=== PATIENT | male | born 1960 | race African-American/Black ===

== ENCOUNTER 2018-03-17 19:46 | Inpatient (IN) | payer OTHER ==
[2018-03-17] MEDS ORDERED: BISACODYL 10 MG SUPP PR (22:00)
[2018-03-17] MEDS ORDERED: MAGNESIUM HYDROXIDE 30ML CUP PO (22:00)
[2018-03-17] MEDS: ATORVASTATIN 40 MG TAB PO (22:33)
[2018-03-17 23:24] LABS: ADD UMIC NO; UR ASCORBIC ACID NEGATIVE (NEGATIVE); UR BILIRUBIN (Dip) NEGATIVE (NEGATIVE); UR BLOOD (Dip) NEGATIVE (NEGATIVE); UR CLARITY CLEAR (CLEAR); UR COLOR YELLOW (YELLOW); UR GLUCOSE (Dip) NEGATIVE (NEGATIVE); UR KETONES (Dip) NEGATIVE (NEGATIVE); UR LEUKOCYTE ESTERASE (Dip) NEGATIVE Leu/ul (NEGATIVE); UR NITRITE (Dip) NEGATIVE (NEGATIVE); UR SPECIFIC GRAVITY (Dip) 1.027 (1.003-1.030); UR TOTAL PROTEIN (Dip) NEGATIVE (NEGATIVE); UR UROBILINOGEN (Dip) 1+ mg/dL (NEGATIVE)
[2018-03-18 06:34] LABS: ADD MAN DIFF? NO
[2018-03-18 06:45] LABS: WHITE BLOOD COUNT 8.3 10^3/ul (4.8-10.8)
[2018-03-18 06:45] LABS: BASOPHILS % 0.4 % (0.0-2.0); EOSINOPHILS # 0.2 10^3/ul (0.0-0.5); EOSINOPHILS % 2.2 % (0.0-7.0); HEMATOCRIT 33.7 % (42.0-52.0); HEMOGLOBIN 10.7 g/dl (14.0-18.0); LYMPHOCYTES # 1.1 10^3/ul (0.8-2.9); MEAN CORPUSCULAR HEMOGLOBIN 27.8 pg (29.0-33.0); MEAN CORPUSCULAR HGB CONC 31.8 g/dl (32.0-37.0); MEAN CORPUSCULAR VOLUME 87.5 fl (82.0-101.0); MEAN PLATELET VOLUME 8.3 fl (7.4-10.4); MONOCYTES % 11.6 % (0.0-11.0); NEUTROPHIL # 5.9 10^3/ul (1.6-7.5); NEUTROPHILS % 70.6 % (39.0-77.0); PLATELET COUNT 613 10^3/UL (140-415); RED BLOOD COUNT 3.85 10^6/ul (4.70-6.10); RED CELL DISTRIBUTION WIDTH 12.1 % (11.5-14.5)
[2018-03-18 06:51] LABS: ALANINE AMINOTRANSFERASE 149 IU/L (13-69); ALBUMIN 3.8 g/dl (3.3-4.9); ALBUMIN/GLOBULIN RATIO 1.05; ALKALINE PHOSPHATASE 110 IU/L (42-121); ANION GAP 11 (8-16); ASPARTATE AMINO TRANSFERASE 117 IU/L (15-46); BILIRUBIN,INDIRECT 0.2 mg/dl (0-1.1); BILIRUBIN,TOTAL 0.2 mg/dl (0.2-1.3); BLOOD UREA NITROGEN 16 mg/dl (7-20); CALCIUM 9.6 mg/dl (8.4-10.2); CARBON DIOXIDE 26 mmol/L (21-31); CHLORIDE 108 mmol/L (97-110); CREATININE 1.04 mg/dl (0.61-1.24); GLUCOSE 111 mg/dl (70-220); POTASSIUM 4.8 mmol/L (3.5-5.1); SODIUM 140 mmol/L (135-144); TOTAL PROTEIN 7.4 g/dl (6.1-8.1)
[2018-03-18] MEDS: ASPIRIN (EC) 81 MG TAB PO (10:16)
[2018-03-18] MEDS: CLOPIDOGREL 75 MG TAB PO (10:16)
[2018-03-18] MEDS: DOCUSATE SODIUM 100 MG CAP PO ×2 (10:29→21:56)
[2018-03-18 12:44] LABS: CHOLESTEROL 162 mg/dl (100-200)
[2018-03-18 12:44] LABS: CHOL/HDL RATIO 5.7 RATIO; HDL CHOLESTEROL 28 mg/dl (28-71); LDL CHOLESTEROL,CALCULATED 107 mg/dl; TRIGLYCERIDES 137 mg/dl (0-149)
[2018-03-18 12:51] LABS: HEMOGLOBIN A1C 6.1 % (0-5.9)
[2018-03-18 13:16] LABS: THYROID STIMULATING HORMONE 0.606 MIU/L (0.465-4.680)
[2018-03-18] MEDS: SENNA TAB PO (21:56)
[2018-03-18] MEDS: ATORVASTATIN 40 MG TAB PO (21:56)
[2018-03-18] MEDS: LIDOCAINE 5% PATCH TD (21:56)
[2018-03-19] MEDS: DOCUSATE SODIUM 100 MG CAP PO ×2 (08:29→20:40)
[2018-03-19] MEDS: ACETAMINOPHEN 325 MG TAB PO ×2 (08:29→16:43)
[2018-03-19] MEDS: CLOPIDOGREL 75 MG TAB PO (08:29)
[2018-03-19] MEDS: ASPIRIN (EC) 81 MG TAB PO (08:29)
[2018-03-19] MEDS: LIDOCAINE 5% PATCH TD (08:30)
[2018-03-19] MEDS: ATORVASTATIN 40 MG TAB PO (20:40)
[2018-03-19] MEDS: HEPARIN 5,000 UNIT/0.5 ML VIAL SC (20:48)
[2018-03-19] MEDS: SENNA TAB PO (21:00)
[2018-03-20] MEDS: DOCUSATE SODIUM 100 MG CAP PO ×2 (08:23→21:13)
[2018-03-20] MEDS: ASPIRIN (EC) 81 MG TAB PO (08:23)
[2018-03-20] MEDS: CLOPIDOGREL 75 MG TAB PO (08:24)
[2018-03-20] MEDS: LIDOCAINE 5% PATCH TD (08:26)
[2018-03-20] MEDS: HEPARIN 5,000 UNIT/0.5 ML VIAL SC (08:26)
[2018-03-20] MEDS: ACETAMINOPHEN 325 MG TAB PO (16:11)
[2018-03-20] MEDS: SENNA TAB PO (21:13)
[2018-03-20] MEDS: ATORVASTATIN 40 MG TAB PO (21:13)
[2018-03-21] MEDS: DOCUSATE SODIUM 100 MG CAP PO ×2 (09:08→21:08)
[2018-03-21] MEDS: LIDOCAINE 5% PATCH TD (09:08)
[2018-03-21] MEDS: CLOPIDOGREL 75 MG TAB PO (09:09)
[2018-03-21] MEDS: ASPIRIN (EC) 81 MG TAB PO (10:00)
[2018-03-21] MEDS: MAGNESIUM HYDROXIDE 30ML CUP PO (18:31)
[2018-03-21] MEDS: LACTULOSE 30ML CUP PO (21:08)
[2018-03-21] MEDS: ATORVASTATIN 40 MG TAB PO (21:08)
[2018-03-21] MEDS: SENNA TAB PO (21:08)
[2018-03-22] MEDS: CLOPIDOGREL 75 MG TAB PO (08:44)
[2018-03-22] MEDS: ASPIRIN (EC) 81 MG TAB PO (08:44)
[2018-03-22] MEDS: LIDOCAINE 5% PATCH TD (08:44)
[2018-03-22] MEDS: DOCUSATE SODIUM 100 MG CAP PO ×2 (08:44→20:33)
[2018-03-22 13:15] LABS: HEPATITIS B SURFACE ANTIGEN NEGATIVE (NEGATIVE)
[2018-03-22 13:32] LABS: HEPATITIS C VIRAL ANTIBODY NEGATIVE (NEGATIVE)
[2018-03-22 13:33] LABS: HIV 1&2 ANTIBODY NEGATIVE (NEGATIVE)
[2018-03-22] MEDS: LACTULOSE 30ML CUP PO (15:07)
[2018-03-22] MEDS: SENNA TAB PO (20:33)
[2018-03-22] MEDS: MAGNESIUM HYDROXIDE 30ML CUP PO (20:33)
[2018-03-22] MEDS: ATORVASTATIN 40 MG TAB PO (20:33)
[2018-03-23] MEDS: DOCUSATE SODIUM 100 MG CAP PO (08:09)
[2018-03-23] MEDS: ASPIRIN (EC) 81 MG TAB PO (08:09)
[2018-03-23] MEDS: LIDOCAINE 5% PATCH TD (08:09)
[2018-03-23] MEDS: CLOPIDOGREL 75 MG TAB PO (08:09)
[2018-03-23] MEDS: LACTULOSE 30ML CUP PO (13:31)
[2018-03-23] MEDS: PSYLLIUM 28% PACKET PO ×2 (14:43→21:00)
[2018-03-23] MEDS: BISACODYL (EC) 5 MG TAB PO (14:43)
[2018-03-23] MEDS: ATORVASTATIN 40 MG TAB PO (20:54)
[2018-03-23] MEDS: SENNA TAB PO (20:55)
[2018-03-23] MEDS: DOCUSATE SODIUM 250 MG CAP PO (20:55)
[2018-03-24] MEDS: PSYLLIUM 28% PACKET PO ×2 (08:45→20:18)
[2018-03-24] MEDS: LIDOCAINE 5% PATCH TD (08:45)
[2018-03-24] MEDS: SENNA TAB PO ×2 (08:46→20:19)
[2018-03-24] MEDS: BISACODYL (EC) 5 MG TAB PO (08:46)
[2018-03-24] MEDS: DOCUSATE SODIUM 250 MG CAP PO ×2 (08:46→20:18)
[2018-03-24] MEDS: ASPIRIN (EC) 81 MG TAB PO (08:46)
[2018-03-24] MEDS: CLOPIDOGREL 75 MG TAB PO (08:46)
[2018-03-24] MEDS: ATORVASTATIN 40 MG TAB PO (20:18)
[2018-03-25] MEDS: CLOPIDOGREL 75 MG TAB PO (09:04)
[2018-03-25] MEDS: BISACODYL (EC) 5 MG TAB PO (09:04)
[2018-03-25] MEDS: ASPIRIN (EC) 81 MG TAB PO (09:04)
[2018-03-25] MEDS: DOCUSATE SODIUM 250 MG CAP PO ×2 (09:04→20:31)
[2018-03-25] MEDS: SENNA TAB PO ×2 (09:05→20:32)
[2018-03-25] MEDS: PSYLLIUM 28% PACKET PO ×2 (09:08→20:32)
[2018-03-25] MEDS: LIDOCAINE 5% PATCH TD (09:08)
[2018-03-25] MEDS: ATORVASTATIN 40 MG TAB PO (20:31)
[2018-03-26] MEDS: PSYLLIUM 28% PACKET PO ×2 (08:10→21:00)
[2018-03-26] MEDS: BISACODYL (EC) 5 MG TAB PO (08:10)
[2018-03-26] MEDS: SENNA TAB PO ×2 (08:10→21:03)
[2018-03-26] MEDS: DOCUSATE SODIUM 250 MG CAP PO ×2 (08:21→21:03)
[2018-03-26] MEDS: CLOPIDOGREL 75 MG TAB PO (08:21)
[2018-03-26] MEDS: ASPIRIN (EC) 81 MG TAB PO (08:21)
[2018-03-26] MEDS: LIDOCAINE 5% PATCH TD (08:23)
[2018-03-26] MEDS: ATORVASTATIN 40 MG TAB PO (21:03)
[2018-03-27 06:50] LABS: WHITE BLOOD COUNT 7.2 10^3/ul (4.8-10.8)
[2018-03-27 06:50] LABS: ADD MAN DIFF? NO; BASOPHILS % 0.6 % (0.0-2.0); EOSINOPHILS # 0.4 10^3/ul (0.0-0.5); EOSINOPHILS % 4.9 % (0.0-7.0); HEMATOCRIT 33.6 % (42.0-52.0); HEMOGLOBIN 10.6 g/dl (14.0-18.0); LYMPHOCYTES # 1.2 10^3/ul (0.8-2.9); LYMPHOCYTES % 16.5 % (15.0-51.0); MEAN CORPUSCULAR HEMOGLOBIN 27.4 pg (29.0-33.0); MEAN CORPUSCULAR HGB CONC 31.5 g/dl (32.0-37.0); MEAN CORPUSCULAR VOLUME 86.8 fl (82.0-101.0); MEAN PLATELET VOLUME 7.9 fl (7.4-10.4); MONOCYTE # 0.8 10^3/ul (0.3-0.9); MONOCYTES % 10.6 % (0.0-11.0); NEUTROPHIL # 4.6 10^3/ul (1.6-7.5); NEUTROPHILS % 64.7 % (39.0-77.0); PLATELET COUNT 631 10^3/UL (140-415); RED BLOOD COUNT 3.87 10^6/ul (4.70-6.10); RED CELL DISTRIBUTION WIDTH 11.9 % (11.5-14.5)
[2018-03-27 07:19] LABS: ALANINE AMINOTRANSFERASE 90 IU/L (13-69); ALBUMIN 3.7 g/dl (3.3-4.9); ALBUMIN/GLOBULIN RATIO 0.94; ALKALINE PHOSPHATASE 104 IU/L (42-121); ANION GAP 16 (8-16); ASPARTATE AMINO TRANSFERASE 45 IU/L (15-46); BILIRUBIN,INDIRECT 0.3 mg/dl (0-1.1); BILIRUBIN,TOTAL 0.3 mg/dl (0.2-1.3); BLOOD UREA NITROGEN 11 mg/dl (7-20); CALCIUM 9.4 mg/dl (8.4-10.2); CARBON DIOXIDE 24 mmol/L (21-31); CHLORIDE 107 mmol/L (97-110); CREATININE 0.92 mg/dl (0.61-1.24); GLUCOSE 112 mg/dl (70-220); POTASSIUM 4.9 mmol/L (3.5-5.1); SODIUM 142 mmol/L (135-144); TOTAL PROTEIN 7.6 g/dl (6.1-8.1)
[2018-03-27] MEDS: DOCUSATE SODIUM 250 MG CAP PO ×2 (08:21→21:24)
[2018-03-27] MEDS: ASPIRIN (EC) 81 MG TAB PO (08:22)
[2018-03-27] MEDS: CLOPIDOGREL 75 MG TAB PO (08:22)
[2018-03-27] MEDS: LIDOCAINE 5% PATCH TD (08:23)
[2018-03-27] MEDS: BISACODYL (EC) 5 MG TAB PO (08:29)
[2018-03-27] MEDS: SENNA TAB PO ×2 (08:29→21:24)
[2018-03-27] MEDS: PSYLLIUM 28% PACKET PO ×2 (08:29→21:24)
[2018-03-27] MEDS: ATORVASTATIN 40 MG TAB PO (21:24)
[2018-03-28] MEDS: SENNA TAB PO ×2 (08:35→21:31)
[2018-03-28] MEDS: CLOPIDOGREL 75 MG TAB PO (08:36)
[2018-03-28] MEDS: PSYLLIUM 28% PACKET PO ×3 (08:36→21:31)
[2018-03-28] MEDS: DOCUSATE SODIUM 250 MG CAP PO ×2 (08:36→21:31)
[2018-03-28] MEDS: ASPIRIN (EC) 81 MG TAB PO (08:36)
[2018-03-28] MEDS: LIDOCAINE 5% PATCH TD (08:36)
[2018-03-28] MEDS: BISACODYL (EC) 5 MG TAB PO (08:36)
[2018-03-28] MEDS: ATORVASTATIN 40 MG TAB PO (21:31)
[2018-03-29] MEDS: PSYLLIUM 28% PACKET PO ×2 (08:42→21:00)
[2018-03-29] MEDS: LIDOCAINE 5% PATCH TD (08:42)
[2018-03-29] MEDS: ACETAMINOPHEN 325 MG TAB PO (08:43)
[2018-03-29] MEDS: BISACODYL (EC) 5 MG TAB PO (08:43)
[2018-03-29] MEDS: SENNA TAB PO ×2 (08:43→21:00)
[2018-03-29] MEDS: DOCUSATE SODIUM 250 MG CAP PO ×2 (08:43→21:00)
[2018-03-29] MEDS: ASPIRIN (EC) 81 MG TAB PO (08:43)
[2018-03-29] MEDS: CLOPIDOGREL 75 MG TAB PO (08:43)
[2018-03-29] MEDS: ATORVASTATIN 40 MG TAB PO (21:02)
[2018-03-30] MEDS: BISACODYL (EC) 5 MG TAB PO (09:00)
[2018-03-30] MEDS: SENNA TAB PO ×2 (09:00→21:00)
[2018-03-30] MEDS: PSYLLIUM 28% PACKET PO ×2 (09:00→21:00)
[2018-03-30] MEDS: DOCUSATE SODIUM 250 MG CAP PO ×2 (09:11→20:52)
[2018-03-30] MEDS: ASPIRIN (EC) 81 MG TAB PO (09:11)
[2018-03-30] MEDS: LIDOCAINE 5% PATCH TD (09:12)
[2018-03-30] MEDS: CLOPIDOGREL 75 MG TAB PO (09:13)
[2018-03-30] MEDS: ATORVASTATIN 40 MG TAB PO (20:52)
[2018-03-31] MEDS: PSYLLIUM 28% PACKET PO ×2 (09:00→20:10)
[2018-03-31] MEDS: DOCUSATE SODIUM 250 MG CAP PO ×2 (09:24→20:10)
[2018-03-31] MEDS: CLOPIDOGREL 75 MG TAB PO (09:24)
[2018-03-31] MEDS: ASPIRIN (EC) 81 MG TAB PO (09:24)
[2018-03-31] MEDS: BISACODYL (EC) 5 MG TAB PO (09:25)
[2018-03-31] MEDS: LIDOCAINE 5% PATCH TD (09:27)
[2018-03-31] MEDS: SENNA TAB PO ×2 (09:27→20:10)
[2018-03-31] MEDS: ATORVASTATIN 40 MG TAB PO (20:10)
[2018-04-01] MEDS: SENNA TAB PO (11:02)
[2018-04-01] MEDS: BISACODYL (EC) 5 MG TAB PO (11:02)
[2018-04-01] MEDS: ASPIRIN (EC) 81 MG TAB PO (11:02)
[2018-04-01] MEDS: CLOPIDOGREL 75 MG TAB PO (11:02)
[2018-04-01] MEDS: DOCUSATE SODIUM 250 MG CAP PO (11:03)
[2018-04-01] MEDS: LIDOCAINE 5% PATCH TD (11:04)
[2018-04-01] MEDS: PSYLLIUM 28% PACKET PO (11:04)
== END 2018-04-01 14:30 | disposition home health service (06) | DRG 57 ==
LOC: VRC 19:46
PROC: F07Z5ZZ Bed Mobility Treatment (ICD-10-PCS; principal; 2018-03-18)
PROC: F07Z8ZZ Transfer Training Treatment (ICD-10-PCS; 2018-03-18)
PROC: F07Z9ZZ Gait Training/Functional Ambulation Treatment (ICD-10-PCS; 2018-03-18)
PROC: F08Z2ZZ Grooming/Personal Hygiene Treatment (ICD-10-PCS; 2018-03-18)
PROC: F08Z1ZZ Dressing Techniques Treatment (ICD-10-PCS; 2018-03-18)
PROC: F08Z1ZZ Dressing Techniques Treatment (ICD-10-PCS; 2018-03-18)
DX: I69.954 Hemiplegia and hemiparesis following unspecified cerebrovascular disease affecting left non-dominant side (principal); I69.922 Dysarthria following unspecified cerebrovascular disease; I69.991 Dysphagia following unspecified cerebrovascular disease; R13.19 Other dysphagia; K59.00 Constipation, unspecified; I10 Essential (primary) hypertension; R73.03 Prediabetes; Z98.890 Other specified postprocedural states; R74.0 Nonspecific elevation of levels of transaminase and lactic acid dehydrogenase [LDH]; F17.200 Nicotine dependence, unspecified, uncomplicated
CPT/HCPCS: 80053; 80061; 81003; 83036; 84443; 85025; 86703; 86803; 87081; 87086; 87340; 92507; 92523; 92526; 92610; 97110; 97112; 97116; 97163; 97167; 97530; 97535; 97542